=== PATIENT | female | born 1945 ===

== ENCOUNTER 2017-06-06 06:42 | Day surgery (SDC) | payer MEDICARE, BC ==
[2017-06-06 07:04] VITALS: BMI 26.4
[2017-06-06] MEDS ORDERED: Lidocaine Hydrochloride 5 ML INJ ONE (08:43)
[2017-06-06] MEDS ORDERED: Propofol 10 mg/ml Inj (20 ML) ONE (08:43)
--- NOTE | 2017-06-06 08:44 | CP.SDSHP ---
Same Day Surgery H & P - History Proposed Procedure: colonoscopy Pre-Op Diagnosis: screen - Previous Medical/Surgical History Cardiac: Hypertension Endocrine/Metabolic: Diabetes - Physical Exam Vital Signs: Vital Signs 06/06/17 07:09 Temperature 97.3 F L Pulse Rate 78 Respiratory 19 Rate Blood Pressure 140/81 O2 Sat by Pulse 99 Oximetry Mental Status: Alert & Oriented x3 Neuro: WNL Heart: WNL Lungs: WNL GI: WNL - {Optional Preform as Required} Abdomen: WNL - Impression Impression: screening Pt. Evaluated Today:Candidate for Anesthesia & Procedure: Yes - Date & Time Date: 06/06/17 Time: 08:35 Short Stay Discharge - Short Stay Discharge Admitting Diagnosis/Reason for Visit: SCREENING Disposition: HOME/ ROUTINE
[2017-06-06] MEDS ORDERED: Lactated Ringer's 500 ML IV SCH (09:15)
[2017-06-06 09:27] VITALS: TEMP 97.9
[2017-06-06 09:46] VITALS: O2SAT 98
[2017-06-06 10:27] VITALS: BP 136/67; PULSE 74; RESP 16
== END 2017-06-06 10:10 | disposition home or self-care (01) ==
LOC: C.ENDO 06:42
PROVIDERS: ATTEND Internal Medicine Gastroenterology
DX: K57.90 Diverticulosis of intestine, part unspecified, without perforation or abscess without bleeding (principal); K63.5 Polyp of colon
CPT/HCPCS: 45388; 82948; 88305; J2704; J7120

== ENCOUNTER 2018-01-26 11:36 | Inpatient (IN) | payer MEDICARE, BC ==
[2018-01-26 11:36] VITALS: BMI 26.4
[2018-01-26 12:46] LABS: BASO % 0.2 % (0.0-2.0); HEMOGLOBIN 10.1 g/dL (11.0-16.0); LYMPH # 1.6 K/uL (1.0-4.3); LYMPH % 14.4 % (20.0-40.0); MEAN CELL VOLUME 83.6 fL (81.0-99.0); MEAN CORPUSCULAR HEMOGLOBIN 28.2 pg (27.0-31.0); MEAN CORPUSCULAR HGB CONC 33.8 g/dL (33.0-37.0); MEAN PLATELET VOLUME 7.8 fL (7.2-11.7); MONO # 0.9 K/uL (0.0-0.8); MONO % 7.7 % (0.0-10.0); NEUT # 8.8 K/uL (1.8-7.0); NEUT % 77.7 % (50.0-75.0); RBC 3.57 Mil/uL (3.80-5.20); RED CELL DISTRIBUTION WIDTH 14.6 % (11.5-14.5); WHITE BLOOD COUNT 11.3 K/uL (4.8-10.8)
--- NOTE | 2018-01-26 12:51 | RAD ---
Chest x-ray two views History: Pneumonia. Comparison: 01/25/2018 Findings: Biapical pleural thickening. Diffuse increased interstitial lung markings. Mild right hilar prominence. Mild patchy increased markings at the right lung base. Degenerative changes in the spine. Productive changes at the distal left clavicle. Tortuous aorta. Heart size within normal limits. Impression: Biapical pleural thickening. Diffuse increased interstitial lung markings. Mild right hilar prominence. Mild patchy increased markings at the right lung base. Degenerative changes in the spine. Productive changes at the distal left clavicle.
[2018-01-26 12:52] LABS: ALBUMIN 4.1 g/dL (3.5-5.0); CALCIUM 9.6 mg/dl (8.6-10.4)
[2018-01-26 13:04] LABS: TROPONIN I 0.083 ng/mL (0.00-0.120)
[2018-01-26] MEDS ORDERED: MethylPREDNISolone 40 mg Vial ONE (13:33)
[2018-01-26] MEDS: MethylPREDNISolone 40 mg Vial IVP SCH ×2 (13:35→22:30)
[2018-01-26] MEDS: Albuterol-Ipratrop 3 mg / 0.5 (3 ml) UD INH SCH ×2 (14:48→19:28)
--- NOTE | 2018-01-26 14:56 | C.PDOC ---
History Of Present Illness 73 year old female presents to the ED after being sent by Dr. Ng for evaluation of persistent cough which began 2 weeks ago. Patient failed outpatient antibiotic therapy. Patient was prescribed Levaquin and Prednisone. Patient reports having subjective fevers at home. She denies nausea, vomiting, recent travel. Chief Complaint (Nursing): Cough, Cold, Congestion History Per: Patient History/Exam Limitations: no limitations Onset/Duration Of Symptoms: Other (2 weeks ) Current Symptoms Are (Timing): Still Present Sick Contacts (Context): None Associated Symptoms: Fever, Cough Recent travel outside of the [place]: No Additional History Per: Patient Past Medical History Reviewed: Historical Data, Nursing Documentation, Vital Signs Vital Signs: Last Vital Signs Temp 99.1 F 01/26/18 17:01 Pulse 89 01/26/18 17:35 Resp 16 01/26/18 17:35 BP 159/84 H 01/26/18 17:35 Pulse Ox 96 01/26/18 17:35 - Medical History PMH: HTN, Hypercholesterolemia Denies: Chronic Kidney Disease Surgical History: Cholecystectomy Family History: States: Unknown Family Hx - Social History Hx Alcohol Use: No Hx Substance Use: No - Immunization History Hx Tetanus Toxoid Vaccination: No Hx Influenza Vaccination: No Hx Pneumococcal Vaccination: No Review Of Systems Constitutional: Positive for: Fever Respiratory: Positive for: Cough Gastrointestinal: Negative for: Nausea, Vomiting Physical Exam - Physical Exam Appears: Non-toxic, No Acute Distress Skin: Normal Color, Warm, Dry Head: Atraumatic, Normacephalic Eye(s): bilateral: Normal Inspection Oral Mucosa: Moist Neck: Supple Chest: Symmetrical, No Deformity, No Tenderness Cardiovascular: Rhythm Regular, No Murmur Respiratory: Other (coarse sounds noted at right base ) Extremity: Normal ROM, Capillary Refill (less than 2 seconds ) Neurological/Psych: Oriented x3, Normal Speech, Normal Cognition Gait: Steady ED Course And Treatment - Laboratory Results Result Diagrams: 01/26/18 12:37 01/26/18 12:37 ECG: Interpreted By Me, Viewed By Me ECG Rhythm: Sinus Rhythm Rate From EC O2 Sat by Pulse Oximetry: 99 (on RA ) Pulse Ox Interpretation: Normal Medical Decision Making Medical Decision Making: Progress: Bloodwork, Flu swab, UA, CXR, EKG ordered and reviewed. Disposition - Disposition Disposition Time: 13:00 Condition: STABLE - Clinical Impression Clinical Impression: Pneumonia - Scribe Statement The provider has reviewed the documentation as recorded by the Scribe Provider Attestation: All medical record entries made by the Scribe were at my direction and personally dictated by me. I have reviewed the chart and agree that the record accurately reflects my personal performance of the history, physical exam, medical decision making, and the department course for this patient. I have also personally directed, reviewed, and agree with the discharge instructions and disposition.
[2018-01-26] MEDS: Azithromycin 500 MG in Sodium Chloride 0.9% 250 ML IVPB SCH (16:00)
[2018-01-26] MEDS: (Novolin R) Insulin Human Regular 100 units/ml vial SC SCH ×2 (17:36→22:30)
[2018-01-26] MEDS ORDERED: (Novolin R) Insulin Human Regular 100 units/ml vial ONE ×3 (17:46→23:10)
--- NOTE | 2018-01-26 17:59 | CP.PCM.HP ---
History of Present Illness - History of Present Illness History of Present Illness: Chief complaints: Cough HPI: 73-year-old female, with a history of hypertension, diabetes was seen by me in my office at least 3 times in the last 1 month with similar symptoms. Patient was initially came to the office at the end of December with increasing cough, mucus production, wheezing, at that time patient was given Z-Andrey and inhaled corticosteroid. Patient initially felt slightly better, but she started having increasing symptoms again in the last 1-2 weeks. She was not improving at all in spite of all the medications. So I gave her a second dose of antibiotic and corticosteroid, 3 days ago, but patient called me, and she was complaining of increasing symptoms of cough, progressively worsening shortness of breath. In spite of the medication no improvement, so I advised her to go to the emergency room. She continues to have a fever, high-grade noted yesterday, poor appetite noted , intake is extremely limited, nausea, 2 episodes of vomiting in the past and noted. Diarrhea negative. Weakness, and easy fatigability present. Cough is associated with the mucus production which is, yellowing discoloration. Past medical history: Diabetes and hypertension. Surgical history: Patient had a thyroid biopsy recently. and cholecystectomy in 1998. Allergies no known drug allergies Family history: Father secondary to natural cause ? heart attack Mother also at the age of 54. Brother had a history of CVA Social history: Nonsmoker, nonalcoholic. Node illicit drug abuse Current medications: Atorvastatin, Singulair, metformin, Januvia, omeprazole, losartan hydrochlorothiazide and gabapentin Review of system: Increasing symptoms of cough and wheezing and cough associated with shortness of breath fever and chills noted. Vital signs reviewed No neck vein distention noted Chest good air entry bilaterally, mild wheezing /rales noted CVS regular heart sound, no murmur noted Abdomen soft, nontender. 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 Labs reviewed Elevated WBC noted Otherwise nonspecific Assessment and recommended impression: 73-year-old female with a history of diabetes and hypertension now came to the ER with a possible outpatient failure of acute bronchitis treatment, underlying pneumonia cannot be ruled out. I would like to get a CT of the chest, antibiotic, intravenous corticosteroids, IV fluid DVT and GI prophylaxis. We'll continue the current treatment, glucose monitoring. Will follow-up the patient Present on Admission - Present on Admission Any Indicators Present on Admission: No History of DVT/PE: No History of Uncontrolled Diabetes: No Urinary Catheter: No Decubitus Ulcer Present: No Past Patient History - Past Medical History & Family History Past Medical History?: Yes - Past Social History Smoking Status: Never Smoked - CARDIAC Hx Hypercholesterolemia: Yes Hx Hypertension: Yes - PULMONARY Hx Respiratory Disorders: No - NEUROLOGICAL Hx Neurological Disorder: No - HEENT Hx HEENT Problems: No - RENAL Hx Chronic Kidney Disease: No - ENDOCRINE/METABOLIC Hx Endocrine Disorders: Yes Hx Diabetes Mellitus Type 1: Yes Hx Diabetes Mellitus Type 2: Yes - HEMATOLOGICAL/ONCOLOGICAL Hx Blood Disorders: No - INTEGUMENTARY Hx Dermatological Problems: No - MUSCULOSKELETAL/RHEUMATOLOGICAL Hx Musculoskeletal Disorders: No - GASTROINTESTINAL Hx Gastrointestinal Disorders: No - GENITOURINARY/GYNECOLOGICAL Hx Genitourinary Disorders: No - PSYCHIATRIC Hx Substance Use: No - SURGICAL HISTORY Hx Cholecystectomy: Yes - ANESTHESIA Hx Anesthesia: Yes Hx Anesthesia Reactions: No Hx Malignant Hyperthermia: No Meds Allergies/Adverse Reactions: Allergies Allergy/AdvReac Type Severity Reaction Status Date / Time morphine AdvReac NAUSEA Verified 06/06/17 08:45 Results - Vital Signs Recent Vital Signs: Last Vital Signs Temp 99.1 F 01/26/18 17:01 Pulse 89 01/26/18 17:35 Resp 16 01/26/18 17:35 BP 159/84 H 01/26/18 17:35 Pulse Ox 96 01/26/18 17:35 - Labs Result Diagrams: 01/26/18 12:37 01/26/18 12:37 Labs: Laboratory Results - last 24 hr 01/26/18 01/26/18 01/26/18 12:37 12:37 12:42 WBC 11.3 H RBC 3.57 L Hgb 10.1 L Hct 29.8 L MCV 83.6 MCH 28.2 MCHC 33.8 RDW 14.6 H Plt Count 241 MPV 7.8 Neut % (Auto) 77.7 H Lymph % (Auto) 14.4 L [place] % (Auto) 7.7 Eos % (Auto) 0.0 Baso % (Auto) 0.2 Neut # (Auto) 8.8 H Lymph # (Auto) 1.6 [place] # (Auto) 0.9 H Eos # (Auto) 0.0 Baso # (Auto) 0.0 Sodium 139 Potassium 4.1 Chloride 99 Carbon Dioxide 27 Anion Gap 17 BUN 24 H Creatinine 1.2 Est GFR ( Amer) 53 Est GFR (Non-Af Amer) 44 POC Glucose (mg/dL) Random Glucose 279 H Calcium 9.6 Total Bilirubin 0.4 AST 18 ALT 20 Alkaline Phosphatase 87 Troponin I 0.0830 Total Protein 8.1 Albumin 4.1 Globulin 4.1 H Albumin/Globulin Ratio 1.0 Influenza Typ A,B (EIA) Negative for flu a/b 01/26/18 16:53 WBC RBC Hgb Hct MCV MCH MCHC RDW Plt Count MPV Neut % (Auto) Lymph % (Auto) [place] % (Auto) Eos % (Auto) Baso % (Auto) Neut # (Auto) Lymph # (Auto) [place] # (Auto) Eos # (Auto) Baso # (Auto) Sodium Potassium Chloride Carbon Dioxide Anion Gap BUN Creatinine Est GFR ( Amer) Est GFR (Non-Af Amer) POC Glucose (mg/dL) 255 H Random Glucose Calcium Total Bilirubin AST ALT Alkaline Phosphatase Troponin I Total Protein Albumin Globulin Albumin/Globulin Ratio Influenza Typ A,B (EIA)
[2018-01-26] MEDS ORDERED: Albuterol-Ipratrop 3 mg / 0.5 (3 ml) UD ONE (19:28)
[2018-01-26] MEDS ORDERED: (Novolin R) Insulin Human Regular 100 units/ml vial SC ONE (22:33)
[2018-01-26] MEDS ORDERED: (Lantus) Insulin Glargine, Recombinant SC ONE (23:14)
[2018-01-26] MEDS: (Lantus) Insulin Glargine, Recombinant SC SCH (23:15)
[2018-01-27] MEDS ORDERED: Albuterol-Ipratrop 3 mg / 0.5 (3 ml) UD ONE (04:20)
[2018-01-27] MEDS ORDERED: (Novolin R) Insulin Human Regular 100 units/ml vial ONE ×3 (09:08→18:31)
[2018-01-27] MEDS: (Novolin R) Insulin Human Regular 100 units/ml vial SC SCH ×4 (09:10→22:45)
[2018-01-27] MEDS: MethylPREDNISolone 40 mg Vial IVP SCH ×2 (09:28→22:47)
[2018-01-27] MEDS: Albuterol-Ipratrop 3 mg / 0.5 (3 ml) UD INH SCH ×3 (09:28→22:59)
[2018-01-27] MEDS: Azithromycin 500 MG in Sodium Chloride 0.9% 250 ML IVPB SCH (12:09)
--- NOTE | 2018-01-27 15:29 | CP.PCM.PN ---
Subjective - Date & Time of Evaluation Date of Evaluation: 01/27/18 Time of Evaluation: 15:25 - Subjective Subjective: Patient is currently feeling slightly better, less cough noted, but is still having some mucus production along with the chest tightness. Wheezing noted. Last night the blood sugar was noted to be extremely elevated. Patient was started on anti-glycemic medications. Vital signs reviewed No neck vein distention noted Chest minimal bilateral wheezing noted in the lower lung diaz CVS regular heart sound, no murmur noted Abdomen soft, nontender. 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 Patient will be continuing the medications today including antibiotic and bronchodilators. The patient is clinically stable, will discharge him home tomorrow. Objective - Vital Signs/Intake and Output Vital Signs (last 24 hours): Temp Pulse Resp BP Pulse Ox 98.3 F 81 18 136/81 100 01/27/18 09:10 01/27/18 09:10 01/27/18 09:10 01/27/18 09:10 01/27/18 09:10 - Medications Medications: Current Medications Albuterol/Ipratropium (Duoneb 3 Mg/0.5 Mg (3 Ml) Ud) 3 ml INH RQ6 [facility] Last Admin: 01/27/18 09:28 Dose: 3 ml Aspirin (Aspirin Chewable) 81 mg PO DAILY [facility] Last Admin: 01/27/18 09:27 Dose: 81 mg Famotidine (Pepcid) 20 mg PO DAILY [facility] Last Admin: 01/27/18 09:27 Dose: 20 mg Glipizide (Glucotrol) 10 mg PO ACB [facility] Hydrochlorothiazide (Microzide) 12.5 mg PO DAILY [facility] Last Admin: 01/27/18 09:28 Dose: 12.5 mg Ceftriaxone Sodium 1 gm/ (Sodium Chloride) 100 mls @ 100 mls/hr IVPB DAILY [facility] Last Admin: 01/27/18 09:31 Dose: 100 mls/hr Azithromycin 500 mg/ Sodium (Chloride) 250 mls @ 250 mls/hr IVPB DAILY [facility] Last Admin: 02/26/18 12:09 Dose: 250 mls/hr Insulin Glargine (Lantus) 10 unit SC HS [facility] Last Admin: 01/26/18 23:15 Dose: 10 units Insulin Human Regular (Novolin R) 0 unit SC [facility] PRN Reason: Protocol Last Admin: 01/27/18 13:20 Dose: 8 unit Losartan Potassium (Cozaar) 50 mg PO DAILY [facility] Last Admin: 01/27/18 09:28 Dose: 50 mg Metformin HCl (Glucophage) 1,000 mg PO BID [facility] Last Admin: 01/27/18 09:27 Dose: 1,000 mg Methylprednisolone (Solu-Medrol) 20 mg IVP Q12 [facility] Stop: 01/29/18 13:31 Last Admin: 01/27/18 09:28 Dose: 20 mg Montelukast Sodium (Singulair) 10 mg PO HS [facility] Last Admin: 01/26/18 22:30 Dose: 10 mg Promethazine HCl (Phenergan Syrup) 6.25 mg PO Q6 PRN PRN Reason: Cough Sitagliptin Phosphate (Januvia) 50 mg PO DAILY [facility] Last Admin: 01/27/18 09:27 Dose: 50 mg Sitagliptin Phosphate (Januvia) 100 mg PO DAILY [facility] - Labs Labs: 01/26/18 12:37 01/26/18 12:37
[2018-01-27] MEDS: (Lantus) Insulin Glargine, Recombinant SC SCH (22:45)
[2018-01-28] MEDS: Albuterol-Ipratrop 3 mg / 0.5 (3 ml) UD INH SCH ×4 (01:47→20:04)
[2018-01-28 07:25] LABS: BASO % 0.1 % (0.0-2.0); HEMOGLOBIN 9.9 g/dL (11.0-16.0); LYMPH # 1.3 K/uL (1.0-4.3); LYMPH % 14.7 % (20.0-40.0); MEAN CELL VOLUME 83.7 fL (81.0-99.0); MEAN CORPUSCULAR HEMOGLOBIN 28.4 pg (27.0-31.0); MEAN CORPUSCULAR HGB CONC 33.9 g/dL (33.0-37.0); MEAN PLATELET VOLUME 8.2 fL (7.2-11.7); MONO # 0.4 K/uL (0.0-0.8); MONO % 4.8 % (0.0-10.0); NEUT # 7.4 K/uL (1.8-7.0); NEUT % 80.4 % (50.0-75.0); RBC 3.5 Mil/uL (3.80-5.20); WHITE BLOOD COUNT 9.2 K/uL (4.8-10.8)
[2018-01-28 07:29] LABS: ALBUMIN 3.6 g/dL (3.5-5.0)
[2018-01-28] MEDS: (Novolin R) Insulin Human Regular 100 units/ml vial SC SCH ×4 (08:18→21:34)
[2018-01-28] MEDS: Promethazine 6.25 MG/5 ML CUP PO PRN ×2 (09:22→22:01)
[2018-01-28] MEDS: MethylPREDNISolone 40 mg Vial IVP SCH ×2 (09:23→21:35)
[2018-01-28] MEDS: Azithromycin 500 MG in Sodium Chloride 0.9% 250 ML IVPB SCH (09:37)
--- NOTE | 2018-01-28 14:02 | CARD ---
APPROVED REPORT EKG Measurement Heart [id number] <Conclusion> Normal sinus rhythm Minimal voltage criteria for LVH, may be normal variant Borderline ECG
--- NOTE | 2018-01-28 21:08 | CP.PCM.PN ---
Subjective - Date & Time of Evaluation Date of Evaluation: 01/28/18 Time of Evaluation: 21:05 - Subjective Subjective: Increasing cough noted, today patient was having also choking sensation with cough, mucus production. No fever. She does not have any nausea or vomiting. Denies any abdominal pain. Complaining of pleuritic chest pain especially involving the right lung. Vital signs reviewed No neck vein distention noted Diffuse bilateral wheezing or rales noted CVS regular heart sound, no murmur noted Abdomen soft, nontender. 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 She is only getting Solu-Medrol 20 mg twice a day. We will adjust the Lantus tonight. Assessment and condition: 73-year-old female with a history of diabetes hypertension and hypercholesterolemia now admitted with acute exacerbation of bronchial asthma, and underlying pneumonia. Patient is having worsening blood sugar and diabetes now Blood work in am. bronchodilators Continued antibiotic. antibiotic and Solu-Medrol and will follow-up the patient Objective - Vital Signs/Intake and Output Vital Signs (last 24 hours): Temp Pulse Resp BP Pulse Ox 98.1 F 103 H 20 135/74 97 01/28/18 16:05 01/28/18 16:05 01/28/18 16:05 01/28/18 16:05 01/28/18 16:05 - Medications Medications: Current Medications Albuterol/Ipratropium (Duoneb 3 Mg/0.5 Mg (3 Ml) Ud) 3 ml INH RQ6 [facility] Last Admin: 01/28/18 20:04 Dose: 3 ml Aspirin (Aspirin Chewable) 81 mg PO DAILY [facility] Last Admin: 01/28/18 09:23 Dose: 81 mg Famotidine (Pepcid) 20 mg PO DAILY [facility] Last Admin: 01/28/18 09:23 Dose: 20 mg Glipizide (Glucotrol) 10 mg PO ACB [facility] Last Admin: 01/28/18 08:24 Dose: 10 mg Heparin Sodium (Porcine) (Heparin) 5,000 units SC Q8 [facility] Last Admin: 01/28/18 13:24 Dose: 5,000 units Hydrochlorothiazide (Microzide) 12.5 mg PO DAILY [facility] Last Admin: 01/28/18 09:23 Dose: 12.5 mg Ceftriaxone Sodium 1 gm/ (Sodium Chloride) 100 mls @ 100 mls/hr IVPB DAILY [facility] Last Admin: 01/28/18 09:32 Dose: 100 mls/hr Azithromycin 500 mg/ Sodium (Chloride) 250 mls @ 250 mls/hr IVPB DAILY [facility] Last Admin: 01/28/18 09:37 Dose: 250 mls/hr Insulin Glargine (Lantus) 20 unit SC HS [facility] Insulin Human Regular (Novolin R) 0 unit SC ACHS [facility] PRN Reason: Protocol Last Admin: 01/28/18 17:59 Dose: 12 unit Losartan Potassium (Cozaar) 50 mg PO DAILY [facility] Last Admin: 01/28/18 09:23 Dose: 50 mg Metformin HCl (Glucophage) 1,000 mg PO BID [facility] Last Admin: 01/28/18 18:00 Dose: 1,000 mg Methylprednisolone (Solu-Medrol) 20 mg IVP Q12 [facility] Stop: 01/29/18 13:31 Last Admin: 01/28/18 09:23 Dose: 20 mg Montelukast Sodium (Singulair) 10 mg PO HS [facility] Last Admin: 01/27/18 22:46 Dose: 10 mg Promethazine HCl (Phenergan Syrup) 6.25 mg PO Q6 PRN PRN Reason: Cough Last Admin: 01/28/18 09:22 Dose: 6.25 mg Sitagliptin Phosphate (Januvia) 50 mg PO DAILY [facility] Last Admin: 01/28/18 09:23 Dose: 50 mg Sitagliptin Phosphate (Januvia) 100 mg PO DAILY [facility] Last Admin: 01/28/18 10:00 Dose: Not Given - Labs Labs: 01/28/18 07:05 01/28/18 07:05
[2018-01-28] MEDS: (Lantus) Insulin Glargine, Recombinant SC SCH (21:35)
[2018-01-28] MEDS: Sodium Chloride 0.9% 1,000 ML IV SCH (21:37)
[2018-01-29] MEDS: Albuterol-Ipratrop 3 mg / 0.5 (3 ml) UD INH SCH ×4 (01:10→19:37)
[2018-01-29 06:37] LABS: BASO % 0.1 % (0.0-2.0); HEMOGLOBIN 9.7 g/dL (11.0-16.0); LYMPH % 10.9 % (20.0-40.0); MEAN CELL VOLUME 83.6 fL (81.0-99.0); MEAN CORPUSCULAR HEMOGLOBIN 28.4 pg (27.0-31.0); MEAN PLATELET VOLUME 8.2 fL (7.2-11.7); MONO # 0.3 K/uL (0.0-0.8); MONO % 3.7 % (0.0-10.0); NEUT # 7.8 K/uL (1.8-7.0); NEUT % 85.3 % (50.0-75.0); RBC 3.42 Mil/uL (3.80-5.20); RED CELL DISTRIBUTION WIDTH 14.8 % (11.5-14.5); WHITE BLOOD COUNT 9.2 K/uL (4.8-10.8)
[2018-01-29 06:59] LABS: ALBUMIN 3.4 g/dL (3.5-5.0); CALCIUM 9.1 mg/dl (8.6-10.4)
[2018-01-29] MEDS: (Novolin R) Insulin Human Regular 100 units/ml vial SC SCH ×4 (07:56→21:53)
[2018-01-29] MEDS: MethylPREDNISolone 40 mg Vial IVP SCH (09:00)
[2018-01-29] MEDS: Promethazine 6.25 MG/5 ML CUP PO PRN (09:03)
[2018-01-29] MEDS: Azithromycin 500 MG in Sodium Chloride 0.9% 250 ML IVPB SCH (10:33)
[2018-01-29] MEDS: Sodium Chloride 0.9% 1,000 ML IV SCH (20:00)
[2018-01-29] MEDS ORDERED: Fluticasone-Salmeterol 500-50mcg Diskus INH SCH (20:45)
--- NOTE | 2018-01-29 20:47 | CP.PCM.PN ---
Subjective - Date & Time of Evaluation Date of Evaluation: 01/29/18 Time of Evaluation: 20:46 - Subjective Subjective: Patient slept good last night, but this morning started having increasing coughing episodes. No fever. She does not have any nausea or vomiting. Denies any abdominal pain. No pain noted, no diarrhea Vital signs reviewed No neck vein distention noted Diffuse bilateral wheezing or rales noted CVS regular heart sound, no murmur noted Abdomen soft, nontender. 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 Patient is having worsening blood sugar and diabetes now Blood work in am. bronchodilators Continued antidiabetic discontinue the IV intravenous Solu-Medrol, will start Advair Objective - Vital Signs/Intake and Output Vital Signs (last 24 hours): Temp Pulse Resp BP Pulse Ox 98.0 F 104 H 20 150/75 95 01/29/18 16:00 01/29/18 16:00 01/29/18 16:00 01/29/18 16:00 01/29/18 16:00 Intake and Output: 01/29/18 01/30/18 18:59 06:59 Intake Total 760 Balance 760 - Medications Medications: Current Medications Albuterol/Ipratropium (Duoneb 3 Mg/0.5 Mg (3 Ml) Ud) 3 ml INH RQ6 [facility] Last Admin: 01/29/18 19:37 Dose: 3 ml Aspirin (Aspirin Chewable) 81 mg PO DAILY [facility] Last Admin: 01/29/18 09:00 Dose: 81 mg Famotidine (Pepcid) 20 mg PO DAILY [facility] Last Admin: 01/29/18 09:01 Dose: 20 mg Glipizide (Glucotrol) 10 mg PO ACB [facility] Last Admin: 01/29/18 07:55 Dose: 10 mg Heparin Sodium (Porcine) (Heparin) 5,000 units SC Q8 [facility] Last Admin: 01/29/18 13:15 Dose: 5,000 units Ceftriaxone Sodium 1 gm/ (Sodium Chloride) 100 mls @ 100 mls/hr IVPB DAILY [facility] Last Admin: 01/29/18 09:00 Dose: 100 mls/hr Azithromycin 500 mg/ Sodium (Chloride) 250 mls @ 250 mls/hr IVPB DAILY [facility] Last Admin: 01/29/18 10:33 Dose: 250 mls/hr Sodium Chloride (Sodium Chloride 0.9%) 1,000 mls @ 45 mls/hr IV .[id number] [facility] Last Admin: 01/28/18 21:37 Dose: 45 mls/hr Insulin Glargine (Lantus) 20 unit SC HS [facility] Last Admin: 01/28/18 21:35 Dose: 20 units Insulin Human Regular (Novolin R) 0 unit SC ACHS [facility] PRN Reason: Protocol Last Admin: 01/29/18 18:04 Dose: 8 unit Losartan Potassium (Cozaar) 50 mg PO DAILY [facility] Last Admin: 01/29/18 09:00 Dose: 50 mg Metformin HCl (Glucophage) 1,000 mg PO BID [facility] Last Admin: 01/29/18 18:04 Dose: 1,000 mg Montelukast Sodium (Singulair) 10 mg PO HS [facility] Last Admin: 01/28/18 21:42 Dose: 10 mg Promethazine HCl (Phenergan Syrup) 6.25 mg PO Q6 PRN PRN Reason: Cough Last Admin: 01/29/18 09:03 Dose: 6.25 mg Fluticasone/Salmeterol (Advair Diskus 500/50) 1 puff INH RQ12 [facility] Sitagliptin Phosphate (Januvia) 50 mg PO DAILY [facility] Last Admin: 01/29/18 09:01 Dose: 50 mg Sitagliptin Phosphate (Januvia) 100 mg PO DAILY [facility] Last Admin: 01/29/18 09:00 Dose: 100 mg - Labs Labs: 01/29/18 06:26 01/29/18 06:26
[2018-01-29] MEDS: (Lantus) Insulin Glargine, Recombinant SC SCH (21:52)
[2018-01-30] MEDS: Albuterol-Ipratrop 3 mg / 0.5 (3 ml) UD INH SCH ×3 (01:24→13:07)
[2018-01-30 01:35] VITALS: O2SAT 97
[2018-01-30] MEDS: Promethazine 6.25 MG/5 ML CUP PO PRN (03:28)
[2018-01-30] MEDS: Sodium Chloride 0.9% 1,000 ML IV SCH (06:10)
[2018-01-30] MEDS: (Novolin R) Insulin Human Regular 100 units/ml vial SC SCH ×3 (07:25→16:23)
[2018-01-30] MEDS: Azithromycin 500 MG in Sodium Chloride 0.9% 250 ML IVPB SCH (09:30)
[2018-01-30 09:31] VITALS: BP 129/86; PULSE 75; RESP 18; TEMP 97.7
== END 2018-01-30 16:27 | disposition home or self-care (01) | DRG 194 ==
LOC: C.ER 11:36 → C.9E 13:16 → C.6T 01-27 20:26 → OBSVTOIN 01-29 17:31
PROVIDERS: ADMIT Internal Medicine; ATTEND Internal Medicine
DX: J18.9 Pneumonia, unspecified organism (principal); J45.901 Unspecified asthma with (acute) exacerbation; E11.65 Type 2 diabetes mellitus with hyperglycemia; J20.9 Acute bronchitis, unspecified; I10 Essential (primary) hypertension; E78.00 Pure hypercholesterolemia, unspecified; Z79.4 Long term (current) use of insulin; Z90.49 Acquired absence of other specified parts of digestive tract

== ENCOUNTER 2019-03-04 12:16 | Outpatient (CLI) | payer MEDICARE, BC | END 2019-03-04 12:17 | disposition home or self-care (01) | LOC: C.RADIC 12:16 | DX: M43.6 Torticollis (principal) ==

== ENCOUNTER 2019-03-05 15:26 | Emergency (ER) | payer MEDICARE, BC ==
[2019-03-05 15:39] VITALS: BMI 27.3
[2019-03-05 15:43] VITALS: BP 171/92; PULSE 81; RESP 18; TEMP 98.1; O2SAT 99
[2019-03-05] MEDS ORDERED: DEXTROSE IV ONE (16:33)
[2019-03-05] MEDS ORDERED: Sodium Chloride 0.9% 0 ML ONE (16:33)
[2019-03-05] MEDS ORDERED: [UNRECOGNIZED DRUG - OTHER] IV ONE (16:33)
--- NOTE | 2019-03-05 17:13 | C.PDOC ---
History Of Present Illness Patient is a 74 year old female who presents to the ED for evaluation of pain and tenderness to right trapezius that has been present for the past week. Patient was seen by Dr. Ng who prescribed muscle relaxers and pain relievers, but no NSAIDS and referred her here today for further evaluation of suspected torticollis. She denies any headache, or change in mental status and has not applied any ice therapy. Time Seen by Provider: 03/05/19 15:48 Chief Complaint (Nursing): Medical Clearance History Per: Patient History/Exam Limitations: no limitations Onset/Duration Of Symptoms: Days (one week) Current Symptoms Are (Timing): Still Present Recent travel outside of the [place]: No Additional History Per: Patient Past Medical History Reviewed: Historical Data, Nursing Documentation, Vital Signs Vital Signs: Last Vital Signs Temp 98.1 F 03/05/19 15:39 Pulse 81 03/05/19 15:39 Resp 18 03/05/19 15:39 BP 171/92 H 03/05/19 15:39 Pulse Ox 99 03/05/19 15:39 - Medical History PMH: HTN, Hypercholesterolemia Denies: Chronic Kidney Disease Surgical History: Cholecystectomy Family History: States: Unknown Family Hx - Social History Hx Alcohol Use: No Hx Substance Use: No - Immunization History Hx Tetanus Toxoid Vaccination: Yes Hx Influenza Vaccination: Yes Hx Pneumococcal Vaccination: Yes Review Of Systems Musculoskeletal: Positive for: Arm Pain (pain and tenderness to right trapezius ) Neurological: Negative for: Altered Mental Status, Headache Physical Exam - Physical Exam Appears: Non-toxic, No Acute Distress Skin: Normal Color, Warm, Dry Head: Atraumatic, Normacephalic Oral Mucosa: Moist Neck: Normal ROM, Supple Chest: Symmetrical, No Deformity Cardiovascular: Rhythm Regular, No Murmur Respiratory: Normal Breath Sounds, No Rales, No Rhonchi, No Wheezing Gastrointestinal/Abdominal: Soft, No Tenderness Extremity: Tenderness (tender and swelling to right trapezius area of t-1), Other Neurological/Psych: Oriented x3, Normal Speech, Normal Cognition, Normal Cranial Nerves, Normal Motor, Normal Sensation, Normal Reflexes, Other (no neuro deficits ) ED Course And Treatment O2 Sat by Pulse Oximetry: 99 (on RA) Pulse Ox Interpretation: Normal Medical Decision Making Medical Decision Making: Plan: Motrin 600mg PO Ice pack applied R trapezius tender/spasm already has valium @ home MUCH improved with NSAIDS/ice in ED continue same @ home defer radiology as this seems purely muscular in nature. 15:50. Discussed with Dr. Ng and patient sent home. Disposition Doctor Will See Patient In The: Office Counseled Patient/Family Regarding: Studies Performed, Diagnosis - Disposition Referrals: Evens Ng MD [Staff Provider] - Disposition: HOME/ ROUTINE Disposition Time: 17:12 Condition: GOOD Additional Instructions: ice packs 1/2 hour per hour, nothing hot no hot showers for 1 week Motrin/Advil 600 mg every 6 hours as needed Valium as prior prescription for sleeping/muscle spasm Instructions: Muscle Spasms (DC) Forms: [email or web address] (German) - Clinical Impression Clinical Impression: Trapezius muscle spasm - Scribe Statement The provider has reviewed the documentation as recorded by the Scribsoraya Urbina All medical record entries made by the Scribe were at my direction and personally dictated by me. I have reviewed the chart and agree that the record accurately reflects my personal performance of the history, physical exam, medical decision making, and the department course for this patient. I have also personally directed, reviewed, and agree with the discharge instructions and disposition.
== END 2019-03-05 17:19 | disposition home or self-care (01) ==
LOC: C.ER 15:26
DX: M62.838 Other muscle spasm (principal)